=== PATIENT | male | born 1990 | race Caucasian/White ===

== ENCOUNTER → 2020-05-30 08:49 | Outpatient (CLI) | payer OTHER, SELFPAY ==
[2020-05-13 12:23] VITALS: BMI 39.4
--- NOTE | 2020-05-30 08:50 | MRI_ITS ---
STUDY: MRI RIGHT SHOULDER REASON FOR EXAM: Male, 29 years old. rt shoulder injury with LROM TECHNIQUE: Standardized fat and water weighted pulse sequences were obtained in all 3 orthogonal planes. COMPARISON: None. FINDINGS: Mild supraspinatus and infraspinatus tendinosis and peritendinitis is but no macro tear or muscular atrophy. Normal subscapularis tendon. Normal teres minor tendon. Normal supraspinatus muscle. Normal infraspinatus muscle. Normal subscapularis muscle. Normal teres minor muscle. Normal glenohumeral articulation. Normal humeral head and visualized proximal humerus. Normal biceps labral complex. Normal intracapsular long biceps tendon. Normal labrum. Normal capsulo- ligamentous complex. Normal rotator interval. Moderate acromioclavicular joint arthrosis with capsulitis and inferior osteophyte formation producing medial outlet stenosis. There is a Type II morphology (curved), with a anterolateral downsloping acromion with thickening of the coracoclavicular ligament produces lateral outlet stenosis.. There is no subacromial-subdeltoid bursal fluid. Normal visualized coracohumeral and coracoacromial ligaments. Normal quadrilateral space. Normal axillary space. Normal deltoid muscle. Normal trapezius muscle. MRI/Upper Ext Joint Only(Routine) IMPRESSION: 1. No obvious acute fracture, dislocation, or internal derangement. 2. Mild supraspinatus and infraspinatus tendinosis and peritendinitis is but no macro tear or muscular atrophy. 3. Moderate acromioclavicular joint arthrosis with capsulitis and stress reaction of the distal clavicle with inferior osteophyte formation produces medial outlet stenosis. Anterolateral downsloping acromion with thickening of the coracoacromial ligament produces lateral outlet produces lateral outlet stenosis. Electronically Signed: Aiden Jeter MD at 10:47 EST Tel , Service support ,
== END ==
PROVIDERS: PCP Family Medicine; Referring Provider Physician Assistant; Visit Provider Physician Assistant
DX: S46.911A Strain of unspecified muscle, fascia and tendon at shoulder and upper arm level, right arm, initial encounter (principal); S46.011A Strain of muscle(s) and tendon(s) of the rotator cuff of right shoulder, initial encounter
CPT/HCPCS: 73221

== ENCOUNTER 2020-07-01 11:30 | Outpatient (RCR) | payer OTHER, SELFPAY ==
[2020-05-13 12:23] VITALS: BMI 39.4
--- NOTE | 2020-05-22 14:36 | HP.PTEVAL_ITS ---
Patient's Visit Information MAUREEN ABAD is a 29 year old M referred to Physical Therapy by CRICKET Lindsay with a diagnosis of . Date of Evaluation: 05/22/20 Physical Therapist: Aniceto Puentes, PT, Cert MDT, OCS - Visit Plan Frequency: 2x /Week Duration: 4 Weeks Plan: POC 2x/week for 4 weeks. PT Interventions: UE/rotator cuff strengthening, scapular strengthening, shoulder stabilization exercises, ROM, modalities. - Subjective This 29 y/o male presents to physical therapy with right shoulder pain. 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 But as day went on increase pain thus [facility] ,[facility] ,place in sling for [address]. [address] 05/20/19 plan to MRI and alexandre PT.Yesterday felt tita but felt better. Located pain lateral deltoif UT -fossa. Aggraveting reaching behind ,OH lifting,extension . Allevaiting rest. Occassional tingling finger. 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 Palpation: TTP around lateral acromion, soreness over bicipital groove. MMT: Flexion 4-/5, abduction 4-/5, 4/5 infraspinatus, 4-/5 supraspinatus, 4/5 subscapularis. AROM 120 degrees flexion, 100 degrees abduction, 85 degrees external rotation, unable to perform functional IR. PROM: pain at end range. SCAPULAR -HUMAERAL FUNCTION: 1:1. CAPSULAR RESTRICTION: WFL - Special Tests R Shoulder External Rotation Lag Test - RC Tear: Negative R Shoulder Lift Off Test - Subscapular Tear: Negative R Shoulder Drop Sign - IS Test: Negative R Shoulder Empty Can - SS: Negative R Shoulder Neer - Impingement: Positive R Shoulder Martinez Nik - Impingement: Positive R Shoulder Biceps Load Test - Labrum: Negative R Shoulder Jerk Test - Posterior Inferior Labrum: Negative R Shoulder Speeds Test - Labrum/Biceps: Negative - Goals Goal 1:: Patient will demonstrate 4+/5 R UE strength for improved functional strength and work related tasks. Goal Time Frame: 2-4 Weeks Goal 2:: Patient will demonstrate 150 degrees of active shoulder flexion and abduction for improved functional mobility. Goal Time Frame: 2-4 Weeks Goal 3:: Patient will demonstrate improvement on the Quick Dash score by 5 or > points for improved quality of life. Goal Time Frame: 2-4 Weeks Goal 4:: Patient will demonstrate independence with HEP. Goal Time Frame: 2-4 Weeks - Rehabilitation Potential Physical Therapy Diagnosis: Patient is a 29 year old male presenting to the clinic with limited R shoulder AROM with pain at end range, decreased UE strength, TTP of lateral acromion and bicipital groove. Patient plans to get MRI of right shoulder. Rehabilitation Potential: Good - Anticipated Interventions Patient/Client Instruction: Educate patient on: Condition, Plan of Care For the Purpose of:: To decrease pain, To increase ROM, To improve muscle performance and motor function, To improve ability to perform ADL's, To improve performance and independence with ADL's, To improve ability of physical actions for home/community/work/leisure, To increase flexibility/ROM, To prevent re- injury, To improve ability to perform tasks related to life management, To improve tolerance to ADL's Therapeutic Exercise to Include: Strength training, Endurance training, Body mechanics, Postural training, Active ROM, Scapular Strength/Stabilization Comment: Rotator cuff strengthening For the Purpose of:: To decrease pain, To increase ROM, To improve muscle performance and motor function, To improve ability to perform ADL's, To improve ability of physical actions for home/community/work/leisure, To increase flexibility/ROM, To improve health and function, To prevent re-injury, To improve ability to perform tasks related to life management, To improve tolerance to ADL's IF ES: Yes Cryotherapy (ice pack, ice massage): Yes Thermo therapy (hot pack): Yes Ultrasound (thermal/non thermal): Yes For the Purpose of:: To decrease pain, To increase ROM, To improve muscle performance and motor function, To improve ability of physical actions for home/community/work/leisure, To increase flexibility/ROM, To improve ability to perform tasks related to life management, To improve tolerance to ADL's Thank you for the opportunity to evaluate your patient. For Medicare and Medicare HMO plans, please review the plan of care and approve it. It will need to be FAXED BACK to us at [phone] for Medicare purposes. For Medicare only, by signing this I certify the plan of care. Please let me know if there are questions or concerns regarding this plan of care. Physician Signature: Date:
--- NOTE | 2020-05-26 15:24 | HP.PTEVAL ---
Patient's Visit Information MAUREEN ABAD is a 29 year old M referred to Physical Therapy by CRICKET Lindsay with a diagnosis of STRAIN MUSCLE TENDON ROTATOR CUFF RIGHT SHOULDER ,MUSCLE FASCIA. Date of Evaluation: 05/22/20 Physical Therapist: Aniceto Puentes, PT, Cert MDT, OCS - Visit Plan Frequency: 2x /Week Duration: 4 Weeks Plan: POC 2x/week for 4 weeks. PT Interventions: UE/rotator cuff strengthening, scapular strengthening, shoulder stabilization exercises, ROM, modalities. - Subjective This 29 y/o male presents to physical therapy with right shoulder pain. 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 But as day went on increase pain thus [facility] ,[facility] ,place in sling for [address]. [address] 05/20/19 plan to MRI and alexandre PT.Yesterday felt tita but felt better. Located pain lateral deltoif UT -fossa. Aggraveting reaching behind ,OH lifting,extension . Allevaiting rest. Occassional tingling finger. 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 Palpation: TTP around lateral acromion, soreness over bicipital groove. MMT: Flexion 4-/5, abduction 4-/5, 4/5 infraspinatus, 4-/5 supraspinatus, 4/5 subscapularis. AROM 120 degrees flexion, 100 degrees abduction, 85 degrees external rotation, unable to perform functional IR. PROM: pain at end range. SCAPULAR -HUMAERAL FUNCTION: 1:1. CAPSULAR RESTRICTION: WFL - Special Tests R Shoulder External Rotation Lag Test - RC Tear: Negative R Shoulder Lift Off Test - Subscapular Tear: Negative R Shoulder Drop Sign - IS Test: Negative R Shoulder Empty Can - SS: Negative R Shoulder Neer - Impingement: Positive R Shoulder Martinez Nik - Impingement: Positive R Shoulder Biceps Load Test - Labrum: Negative R Shoulder Jerk Test - Posterior Inferior Labrum: Negative R Shoulder Speeds Test - Labrum/Biceps: Negative - Goals Goal 1:: Patient will demonstrate 4+/5 R UE strength for improved functional strength and work related tasks. Goal Time Frame: 2-4 Weeks Goal 2:: Patient will demonstrate 150 degrees of active shoulder flexion and abduction for improved functional mobility. Goal Time Frame: 2-4 Weeks Goal 3:: Patient will demonstrate improvement on the Quick Dash score by 5 or > points for improved quality of life. Goal Time Frame: 2-4 Weeks Goal 4:: Patient will demonstrate independence with HEP. Goal Time Frame: 2-4 Weeks - Rehabilitation Potential Physical Therapy Diagnosis: Patient is a 29 year old male presenting to the clinic with limited R shoulder AROM with pain at end range, decreased UE strength, TTP of lateral acromion and bicipital groove. Patient plans to get MRI of right shoulder. Rehabilitation Potential: Good - Anticipated Interventions Patient/Client Instruction: Educate patient on: Condition, Plan of Care For the Purpose of:: To decrease pain, To increase ROM, To improve muscle performance and motor function, To improve ability to perform ADL's, To improve performance and independence with ADL's, To improve ability of physical actions for home/community/work/leisure, To increase flexibility/ROM, To prevent re-injury, To improve ability to perform tasks related to life management, To improve tolerance to ADL's Therapeutic Exercise to Include: Strength training, Endurance training, Body mechanics, Postural training, Active ROM, Scapular Strength/Stabilization Comment: Rotator cuff strengthening For the Purpose of:: To decrease pain, To increase ROM, To improve muscle performance and motor function, To improve ability to perform ADL's, To improve ability of physical actions for home/community/work/leisure, To increase flexibility/ROM, To improve health and function, To prevent re-injury, To improve ability to perform tasks related to life management, To improve tolerance to ADL's IF ES: Yes Cryotherapy (ice pack, ice massage): Yes Thermo therapy (hot pack): Yes Ultrasound (thermal/non thermal): Yes For the Purpose of:: To decrease pain, To increase ROM, To improve muscle performance and motor function, To improve ability of physical actions for home/community/work/leisure, To increase flexibility/ROM, To improve ability to perform tasks related to life management, To improve tolerance to ADL's Thank you for the opportunity to evaluate your patient. For Medicare and Medicare HMO plans, please review the plan of care and approve it. It will need to be FAXED BACK to us at [phone] for Medicare purposes. For Medicare only, by signing this I certify the plan of care. Please let me know if there are questions or concerns regarding this plan of care. Physician Signature: Date:
--- NOTE | 2020-11-03 12:58 | HP.PTDCSUM ---
It has been my pleasure to treat MAUREEN ABAD referred by CRICKET Lindsay, with the diagnosis of STRAIN MUSCLE TENDON ROTATOR CUFF RIGHT SHOULDER ,MUSCLE FASCIA for a total of 9 visit(s). Discharge Date: 07/01/20 Please see the following information for a summary of their discharge status. Subjective: Reports that he has not had pain recently. Reports he is doing full duty at work. Patient to be D/C to HEP. Right Shoulder Pain Intensity (Out of 10): 0 % Improvement: 90 Objective/Function: UE MMT: R shoulder flexion 5/5, IR 5/5, ER 5/5, Abd 5/5, biceps 5/5, ext 5/5. L shoulder flexion 5/5, IR 5/5, ER 5/5, Abd 5/5, biceps 5/5, ext 5/5. R Shoulder AROM: flexion 180 degrees, abd 180 degrees, functional IR L 3. Patient demonstrates no limitations in AROM, pain and strength. Goal 1:: Patient will demonstrate 4+/5 R UE strength for improved functional strength and work related tasks. Goal Progress: Goal Met Goal 2:: Patient will demonstrate 150 degrees of active shoulder flexion and abduction for improved functional mobility. Goal Progress: Goal Met Goal 3:: Patient will demonstrate improvement on the Quick Dash score by 5 or > points for improved quality of life. Goal Progress: Goal Met Goal 4:: Patient will demonstrate independence with HEP. Goal Progress: Goal Met Plan: D/C to HEP. Patient demonstrates full AROM, no limitations with UE strength and no reports of pain. Discharge Comments: D/C to HEP. If there are questions or concerns regarding this patient's physical therapy, please feel free to call me at [phone]. Thank you for the referral of this patient. Sincerely, Aniceto Puentes, PT, Cert MDT, OCS
== END 2020-07-01 19:00 | disposition home or self-care (01) ==
LOC: PT 11:30
PROVIDERS: Referring Provider Physician Assistant; Visit Provider Physician Assistant
DX: S46.011D Strain of muscle(s) and tendon(s) of the rotator cuff of right shoulder, subsequent encounter (principal)
CPT/HCPCS: 97014; 97110; 97161; 97530; G0283

== ENCOUNTER 2022-05-23 15:53 | Emergency (ER) | payer OTHER, SELFPAY ==
[2022-05-23 15:53] VITALS: BP 178/91; PULSE 79; RESP 16; TEMP 36.4; O2SAT 98; BMI 41.1
--- NOTE | 2022-05-23 16:05 | EKG12_ITS ---
Test Reason : CP Blood Pressure : / mmHG Vent. Rate : 079 BPM Atrial Rate : 079 BPM P-R Int : 136 ms QRS Dur : 098 ms QT Int : 364 ms P-R-T Axes : 007 055 007 degrees QTc Int : 417 ms Normal sinus rhythm with sinus arrhythmia Normal ECG Confirmed by NOHEMY MCMAHON, GERMAN ([id number]), newspaper editor BIANCA CONTRERAS ([id number]) on 05/24/2022 9:47:37 AM Referred By: TL Confirmed By:GERMAN SLATER MD
[2022-05-23 16:29] LABS: Eosinophil# 0.16 X10^3/uL; Eosinophils% 1.6 % (0-5); Hematocrit 46.1 % (40-54); Hemoglobin 15.1 g/dL (13.0-16.5); Lymphocyte % 29.5 % (19-41); Mean Corp Hgb Conc 32.8 g/dL (32-36); Mean Corpuscular Hgb 29.7 pg (27.0-32.0); Mean Corpuscular Volume 90.7 fL (80-94); Mean Platelet Vol. 10.6 fl (6.2-12.0); Monocyte# 0.63 X10^3/uL; Monocyte% 6.2 % (0-10); NRBC Flagged by Analyzer 0 % (0-5); Neutrophil # 6.01 X10^3/uL (2.7-7.7); Neutrophil % 58.9 % (47-70); Platelet Count 281 K/mm3 (150-450); RBC Distribution Width CV 12.9 % (11.6-14.6); RBC Distribution Width SD 42.6 fl (35.1-43.9); Red Blood Count 5.08 M/mm3 (4.6-6.2); White Blood Count 10.2 K/mm3 (4.4-11.0)
[2022-05-23 16:47] LABS: Anion Gap 5 (5-15); BUN 17 mg/dL (7-18); BUN/Creat Ratio 15.2 RATIO (10-20); Calcium,Total 9.4 mg/dL (8.5-10.1); Chloride 108 mmol/L (98-107); Creatinine, Serum 1.12 mg/dL (0.70-1.30); EST Glomerular Filtration Rate 81 mL/min (>60); Est Glom Filt Rate - Afr Amer 99 mL/min (>60); Estimated Creatinine Clearance 102.72 ml/min; Glucose 117 mg/dL (74-106); Potassium 3.9 mmol/L (3.5-5.1); Sodium Level 142 mmol/L (136-145); Troponin-I HS 3 pg/mL (3.0-78.0)
--- NOTE | 2022-05-23 17:05 | RAD_ITS ---
STUDY: X-RAY CHEST REASON FOR EXAM: Male, 31 years old. CHEST PAIN chest pain TECHNIQUE: XR Chest 1 View COMPARISON: None FINDINGS: There is no demonstrated pleural abnormality. Normal size heart. Normal mediastinum and andrew. Normal visualized pulmonary arteries. Normal visualized aortic arch and descending thoracic aorta. Normal visualized thoracic spine. Normal visualized ribs, clavicles, and shoulders. There is no demonstrated abnormality of the visualized soft tissue structures of the upper abdomen. RAD/Chest 1 View (Portable) IMPRESSION: There are no acute findings. Electronically Signed: Jose Manuel Winters MD at 17:27 EST ,
--- NOTE | 2022-05-23 17:13 | CT_ITS ---
EXAM: CT ANGIOGRAPHY CHEST WITHOUT AND WITH INTRAVENOUS CONTRAST CLINICAL INDICATION: back pain -- r/o dissection TECHNIQUE: Helically acquired angiography images were obtained of the chest without and with intravenous contrast. This CT exam was performed using one or more of the following dose reduction techniques: automated exposure control, adjustment of the mA and/or kV according to patient size, and/or use of iterative reconstruction technique. This report was created using [employer] report generation technology. MIP reconstructed images were created and reviewed. CONTRAST: IV 100mL Isovue-370 RADIATION DOSE: CTDIvol = 14.63 mGy, DLP = 739.27 mGy-cm COMPARISON: None. FINDINGS: PULMONARY ARTERIES: Unremarkable. No demonstrated pulmonary embolism or arterial dissection. AORTA: Unremarkable. Normal in caliber. No evidence of dissection. GREAT VESSELS OF AORTIC ARCH: Unremarkable. Normal in caliber. No evidence of dissection. LUNGS AND PLEURAL SPACES: Unremarkable. No mass. No consolidation or edema. No pleural effusion or thickening. No pneumothorax. HEART: Unremarkable. Heart size is normal. No pericardial effusion. No signs of right heart strain, ratio of right ventricle to left ventricle measures less than 1. MEDIASTINUM: Unremarkable. No mediastinal or hilar adenopathy. Esophagus is unremarkable. No hiatal hernia. THYROID: Unremarkable. No thyroid lesions. BONES/JOINTS: Unremarkable. No suspicious lytic or blastic abnormality. LIVER: Fatty liver. CT/CTA Chest W/WO Contrast IMPRESSION: 1. No demonstrated pulmonary embolism or arterial dissection. 2. Fatty liver. Electronically Signed: Jose Manuel Winters MD at 18:09 [facility] ,
--- NOTE | 2022-05-23 17:14 | ED.VIS.BACK ---
HPI History of Present Illness Chief Complaint: Back Informant: patient and spouse/S.O. Narrative Narrative: Presents here with mother for evaluation severe right-sided back pain radiating up his right side neck. There is no chest pains. He states last month has been noted on and off neck and right-sided headache symptoms. Yesterday had tingling in his left arm. Today with severe back pain came to ED. History of hyperlipidemia. Denies tobacco. Denies any family history of MIs at young age denies any aortic disease in his family. No recent travel or surgeries. No history of PE or DVT. States that appointment PCP tomorrow however due to back symptoms came to the ED. Prior similar symptoms: No PFSH PFSH Medical History (Updated 05/23/22 @ 18:[address] Aguila Heath DO) Hypercholesterolemia Shoulder pain Home Medications cholesterol med PO 05/13/20 [History Last Taken Unknown] Allergy/AdvReac Type Severity Reaction Status Date / Time No Known Allergies Allergy Verified 05/23/22 17:19 Family History Mother Breast cancer Grandfather Prostate cancer Social History Smoking Status: Never smoker ROS ROS ED Constitutional Constitutional ED: Denies chills, fever(s) or sweats Eyes Eyes: Denies change in vision ENT ENT ED: Denies dysphagia or sore throat Cardiovascular Cardiovascular: Denies chest pain, leg edema, palpitations or racing heartbeat Respiratory/Chest Respiratory/Chest: Denies cough, dyspnea or dyspnea on exertion Gastrointestinal Gastrointestinal: Denies abdominal pain, diarrhea, nausea or vomiting Genitourinary Genitourinary ED: Denies dysuria, hematuria or urinary frequency Musculoskeletal Musculoskeletal: Reports back pain; Denies extremity pain or neck pain Integumentary Denies rash or wounds Neurologic Neurologic: Denies headache(s), paresthesias or weakness EXAM Physical Exam Const Vital Signs: 05/23/22 15:53 05/23/22 17:16 05/23/22 18:55 Temperature 97.5 F L Temperature Source Temporal Pulse Rate 79 84 Respiratory Rate 16 14 Blood Pressure 178/91 H 160/89 H Blood Pressure Mean 120 Pulse Ox 98 97 98 Oxygen Delivery Method Room Air Room Air Positive well nourished and well developed General Appearance ED: well developed and NAD HEENT Reports moist mucous membranes normocephalic and atraumatic Eyes PERRL, EOMs intact bilaterally and conjunctivae normal General Eye ED: Yes normal appearance of both eyes Neck no lymphadenopathy and supple General: Negative for tenderness Chest Wall Chest: Negative for tenderness Resp normal respiratory effort and normal air movement Effort and Inspection: symmetric chest movement; Negative for respiratory distress Cardio regular rate, regular rhythm and no murmurs Peripheral Pulses: pulses 2+ throughout GI normal to inspection, nondistended, normoactive bowel sounds and non-tender Palpation: Negative for guarding or rebound tenderness present Back/Spine no CVA tenderness and no thoracic nor lumbar tenderness Extremity normal to inspection Extremity Narrative: Pulses equal and symmetric upper extremities. General Extremety ED: Negative for edema or tenderness General Extremity: Negative for edema Neuro oriented x3 and no sensory deficits noted Sensorium / Orientation: awake and alert Skin no rashes or lesions noted and no wounds MDM MDM MDM Narrative Medical decision making narrative: EKG normal nursing protocol initiated labs which was reviewed by myself which returned to my evaluation troponin is negative hemoglobin 15.1 white count 10 creatinine 1.12. Differential patient severe back pain. ACS versus PE versus dissection. No cough or viral syndrome. Work-up was negative thus far. I added a CT angiogram due to his new symptoms of severe back pain. 1 view chest x-ray was interpreted by myself showed no acute process. 1850: CT angiogram negative for PE or dissection. Symptoms improving during reevaluation. No chest pains. Intermittent neck pain improved with ibuprofen along with his headaches. He will keep his appointment tomorrow with his PCP for further outpatient management. Continue ibuprofen. Reported was on steroids which he stopped with urgent care a week ago. There is no improvement with that. Therefore he will stop this. All questions were answered. Lab Data Attestation: I reviewed the patient's lab results. Labs: Laboratory Results - last 24 hr 05/23/22 05/23/22 16:00 16:00 WBC 10.2 RBC 5.08 Hgb 15.1 Hct 46.1 MCV 90.7 MCH 29.7 MCHC 32.8 RDW Std Deviation 42.6 RDW Coeff of Janice 12.9 Plt Count 281 MPV 10.6 Immature Gran % (Auto) 2.800 H Neut % (Auto) 58.9 Lymph % (Auto) 29.5 [place] % (Auto) 6.2 Eos % (Auto) 1.6 Baso % (Auto) 1.0 Absolute Neuts (auto) 6.0 Absolute Lymphs (auto) 3.00 Nucleated RBC % 0 Sodium 142 Potassium 3.9 Chloride 108 H Carbon Dioxide 29.0 Anion Gap 5 BUN 17 Creatinine 1.12 Estim Creat Clear Calc 102.72 Est GFR (MDRD) Af Amer 99 Est GFR (MDRD) Non-Af 81 BUN/Creatinine Ratio 15.2 Glucose 117 H Calcium 9.4 Troponin I High Sens 3 Radiography Diagnostic Testing: Clinical Impression(s) from Imaging Studies Chest X-Ray 05/23/22 17:05 IMPRESSION: There are no acute findings. Electronically Signed: Jose Manuel Winters MD at 17:27 EST , Chest CTA 05/23/22 17:13 IMPRESSION: 1. No demonstrated pulmonary embolism or arterial dissection. 2. Fatty liver. Electronically Signed: Jose Manuel Winters MD at 18:09 EST , EKG Initial EKG: Attestation: I personally reviewed and interpreted this EKG as follows: Comments: Sinus rate of 79, no ST changes T wave inversion in leads III. Nonspecific. Discharge Plan Triage Chief Complaint: Back ED Provider: Aguila Heath Dx/Rx/DC Orders Clinical Impression: Acute thoracic back pain, Neck muscle strain Instructions: ED Back Sprain/Strain, ED Neck Sprain or Strain Prescriptions: No Action cholesterol med PO Primary Care Provider: Chad Sawyer Referrals: Chad Sawyer MD [Primary Care Provider] - Keep [place] appointment Activity Restrictions/Additional Instructions: Cardiac work-up negative. CT angiogram chest notes no dissection of aorta. Continue ibuprofen as needed 600 mg every 6 hours. Keep your follow-up with your doctor tomorrow for further management as an outpatient. Disposition Disposition: Home, Self Care Discharge Date/Time: 05/23/22 19:01
[2022-05-23 17:16] VITALS: O2SAT 97
[2022-05-23 18:55] VITALS: BP 160/89; PULSE 84; RESP 14; O2SAT 98
== END 2022-05-23 19:01 | disposition home or self-care (01) ==
PROVIDERS: Emergency Provider Emergency Medicine; PCP Family Medicine; Visit Provider Emergency Medicine
DX: S16.1XXA Strain of muscle, fascia and tendon at neck level, initial encounter (principal); M54.6 Pain in thoracic spine; X58.XXXA Exposure to other specified factors, initial encounter
CPT/HCPCS: 71045; 71275; 80048; 84484; 85025; 93005; 99283; Q9967; A4216

== ENCOUNTER → 2022-11-16 | Outpatient (CLI) | payer OTHER, SELFPAY ==
--- NOTE | 2022-11-15 | LES_PTH ---
PATIENT: MAUREEN ABAD LOC: [facility] U#:[id number] AGE/SX: 32/M ROOM: RE11/16/[address]: CHEYANNE BHATIA MD : [id number] BED: DIS: 11/16/2022 SPEC #: [id number] RECD: 11/16/22 09:48 STATUS: MARRY VIDES #: [id number] SADE: 11/15/22 00:[address]: CHEYANNE BHATIA DEPT: SURGICAL PATHOLOGY RECD BY: Belinda Perkins ENTERED: 11/16/22 10:28 SP TYPE: Lesion OTHR DR: Dr. Chad Sawyer MD Tissues: A - Buccal mucosa, NOS B - Buccal mucosa, NOS Procedures: Surgery Specimen Level IV HEADER OPERATION: Biopsy of left and right buccal mucosa PRE-OP DIAGNOSIS: Biopsy of left and right buccal mucosa TISSUE SUBMITTED: A. Left mucosa of vestibule, B. Right mucosa of vestibule MICROSCOPIC DIAGNOSIS A. Left mucosa of vestibule, biopsy: Chronic inflammation, lichenoid type. B. Right mucosa of vestibule, biopsy: Chronic inflammation, lichenoid type. AM:[email or web address] 11/17/22 COMMENT Case has been reviewed in consultation with Dr. Sawyer who concurs with the above diagnosis. [email or web address] MICROSCOPIC DESCRIPTION Slides are reviewed. GROSS DESCRIPTION A. Received is one container labeled with the patient name and designated Left mucosa of vestibule. The specimen consists of one irregular piece of still mucosal tissue that measures 0.5 x 0.5 x 0.1 cm. The specimen is totally submitted in one cassette. B. Received is one container labeled with the patient name and designated right mucosa of vestibule. The specimen consists of two irregular fragments of still mucosal tissue that in aggregate measure 1.0 x 0.5 x 0.2 cm. The specimen is totally submitted in one cassette. / SJ: 11/16/22 TC:3 CPT: 50873 x2
== END | disposition home or self-care (01) ==
LOC: LABSPEC 10:01
PROVIDERS: PCP Family Medicine; Referring Provider Dentist Oral and Maxillofacial Surgery; Visit Provider Dentist Oral and Maxillofacial Surgery
DX: R22.0 Localized swelling, mass and lump, head (principal); R51.9 Headache, unspecified
CPT/HCPCS: 88305